=== PATIENT | male | born 1990 | race Caucasian/White ===

== ENCOUNTER 2019-10-15 17:09 | Emergency (ER) | payer MEDICAID ==
[~2019-10-15] VITALS: Ht 182.9 cm; Wt 81.0 kg
[2019-10-15] MEDS ORDERED: LIDOcaine 1% W/epiNEPHrine 1:200,000 10ml vial IJ ONE ×2 (17:20→18:00)
[2019-10-15] MEDS ORDERED: TETanus/Pertussis (Acell)/Diphther VAC/PF (Tdap-Adult) 0.5ml syringe IMVAC ONE (17:40)
[2019-10-15 18:31] VITALS: BP 132/81
== END 2019-10-15 19:24 | disposition home or self-care (01) ==
LOC: ER 17:10
DX: S81.811A Laceration without foreign body, right lower leg, initial encounter (principal); W25.XXXA Contact with sharp glass, initial encounter; Y93.89 Activity, other specified; Y92.89 Other specified places as the place of occurrence of the external cause; Y99.8 Other external cause status
CPT/HCPCS: 12002; 12032; 73590; 90471; 90715; 99285

== ENCOUNTER 2019-10-26 13:42 | Emergency (ER) | payer MEDICAID ==
[~2019-10-26] VITALS: Ht 182.9 cm; Wt 93.0 kg
[2019-10-26 13:55] VITALS: BP 129/69
== END 2019-10-26 14:19 | disposition home or self-care (01) ==
LOC: ER 13:42
DX: S81.811D Laceration without foreign body, right lower leg, subsequent encounter (principal); X58.XXXD Exposure to other specified factors, subsequent encounter
CPT/HCPCS: 99281

== ENCOUNTER 2020-08-03 05:50 | Day surgery (SDC) | payer MEDICAID ==
[2020-07-26 11:50] LABS: BASOPHILS # (AUTO) 0.1 X10'3 (0-0.2); BASOPHILS % (AUTO) 0.9 % (0-1); EOSINOPHILS # (AUTO) 0.2 X10'3 (0-0.9); EOSINOPHILS % (AUTO) 2.7 % (0-6); LYMPHOCYTES % (AUTO) 31.5 % (21-51); MEAN CORPUSCULAR HEMOGLOBIN 30.5 PG (27.0-31.0); MEAN CORPUSCULAR HGB CONC 33.4 g/dL (33.0-36.5); MEAN CORPUSCULAR VOLUME 91.4 FL (78-98); MEAN PLATELET VOLUME 7.7 FL (7.4-10.4); MONOCYTES # (AUTO) 0.5 X10'3 (0-0.9); MONOCYTES % (AUTO) 7.3 % (2-12); NEUTROPHILS # (AUTO) 3.7 X10'3 (1.8-7.7); NEUTROPHILS % (AUTO) 57.6 % (42-75); PRE OP HEMATOCRIT 42.7 % (42.0-52.0); PRE OP HEMOGLOBIN 14.3 g/dL (14.0-17.9); PRE OP PLATELET COUNT 260 X10'3 (140-440); RED BLOOD COUNT 4.67 X10'6 (4.70-6.10); RED CELL DISTRIBUTION WIDTH 13.7 % (11.5-14.5)
[2020-07-26 11:58] LABS: ALBUMIN 4.1 G/DL (3.4-5.0); ALBUMIN/GLOBULIN RATIO 1.3 (1.1-1.5); ALKALINE PHOSPHATASE 71 IU/L (46-116); BLOOD UREA NITROGEN 16 MG/DL (7-18); CALCIUM 8.7 MG/DL (8.5-10.1); CHLORIDE 107 MMOL/L (99-107); CREATININE 0.94 MG/DL (0.60-1.10); PRE OP ALT 46 U/L (30-65); PRE OP ANION GAP 12 (8-16); PRE OP AST 23 U/L (10-37); PRE OP BILIRUB, TOTAL 0.3 MG/DL (0.0-1.0); PRE OP GLUCOSE 91 MG/DL (70-104); PRE OP SODIUM 143 MMOL/L (135-145); TOTAL CARBON DIOXIDE 24.3 MMOL/L (24-32); TOTAL PROTEIN 7.3 G/DL (6.4-8.2); eGFR > 90 ML/MIN
[2020-08-03] VITALS (7 sets, daily range): BP systolic 102–131; BP diastolic 50–83
[~2020-08-03] VITALS: Ht 182.9 cm; Wt 92.0 kg
[~2020-08-03 05:50] MED LIST: NO HOME MEDS; ceFAZolin 2gm in dextrose, iso 50 ML IV ONE; famotidine 20mg tablet PO ONE; ringers solution, lacted 1,000 ML IV SCH
[2020-08-03] MEDS ORDERED: LIDOcaine 1% (10mg/ml) 2ml vial ONE (06:03)
[2020-08-03] MEDS ORDERED: sevoflurane 250ml liquid IH ONE (06:57)
[2020-08-03] MEDS ORDERED: fentaNYL/PF 50MCG/1 ML 2ML syringe ONE ×2 (07:00→07:15)
[2020-08-03] MEDS ORDERED: midazolam 2 mg/2 ml injection ONE (07:00)
[2020-08-03] MEDS ORDERED: dexamethasone sod phosphate 4mg/ml inj. ONE (07:01)
[2020-08-03] MEDS ORDERED: LIDOcaine 2% (20mg/ml) 5ml vial ONE (07:04)
[2020-08-03] MEDS ORDERED: propofol inj 20 ML IV ONE ×2 (07:04→07:17)
[2020-08-03] MEDS ORDERED: BUPIVAcaine/PF 2.5 mg/ml (0.25%) 30ml vial ONE (07:07)
[2020-08-03] MEDS ORDERED: ondansetron/PF 4mg/2ml inj ONE (07:13)
[2020-08-03] MEDS ORDERED: ketorolac trometh. 30mg/ml inj. ONE (07:40)
[2020-08-03] MEDS ORDERED: HYDROcodone/acetaminophen 10/325mg tab PO PRN (07:50)
--- NOTE | 2020-08-03 08:00 | NUR ---
Received from OR via BED , accompanied by Anesthesiologist DR CARDOSO and report given by Anesthesiolgist. PATIENT SLEEPY, , DENIES PAIN, V/S STABLE, NEUROVASCULAR CHECKS INTACT, 20G PIV RUE, SCD ON, ISLAND DRESSING TO RIGHT CALF CDI.
[2020-08-03] MEDS ORDERED: ondansetron/PF 4mg/2ml inj IV PRN (08:05)
[2020-08-03] MEDS ORDERED: morphine 4 MG/ML inj SYRINge IV PRN (08:05)
[2020-08-03] MEDS ORDERED: meperidine/PF 25mg/ml syringe IV PRN ×3 (08:05)
[2020-08-03] MEDS ORDERED: proCHLORperazine 10 MG/2 ml inj IV PRN (08:05)
[2020-08-03] MEDS ORDERED: ringers solution, lacted 1,000 ML IV SCH (08:05)
[2020-08-03] MEDS ORDERED: morphine 2 MG/ML inj. syringe IV PRN (08:05)
--- NOTE | 2020-08-03 08:14 | NUR ---
TRANSFER OF CARE, REPORT RECEIVED FROM EM Kamara RN. ORAL AIRWAY OUT, AROUSABLE REMAINS SLEEPY. VSS.
--- NOTE | 2020-08-03 09:00 | NUR ---
DISCHARGE CRITERIA MET, DISCHARGE INSTRUCTIONS GIVEN, DEMONSTRATES VERBAL UNDERSTANDING. DISCHARGED HOME IN GOOD CONDITION.
== END 2020-08-03 09:00 | disposition home or self-care (01) ==
LOC: PAS 05:50
PROVIDERS: ATTEND Orthopaedic Surgery
DX: L90.5 Scar conditions and fibrosis of skin (principal); M79.661 Pain in right lower leg; Z20.822 Contact with and (suspected) exposure to COVID-19; Z79.899 Other long term (current) drug therapy
CPT/HCPCS: 27619; 36415; 80053; 82948; 85025; 87635; J1100; J1885; J2001; J2250; J2405; J2704; J3010; J3490; J7030; J7120; A4215; A4618; A6449; A7000